=== PATIENT | male | born 1955 | race Caucasian/White ===

== ENCOUNTER → 2017-05-18 | Outpatient (CLI) | payer OTHER ==
[~2017-05-18] MED LIST: ASPI-1471 PO; CHOL10005 PO; KRIL500C2 PO; LOSA25TA50 PO; VITA100C PO
[2017-05-18 10:06] LABS: PLATELET COUNT, AUTOMATED 212 K/uL (150-450)
[2017-05-18 10:14] LABS: LDL CHOLESTEROL 115 mg/dl
== END ==
LOC: LAB 09:48
PROVIDERS: ATTEND Internal Medicine
DX: R03.0 Elevated blood-pressure reading, without diagnosis of hypertension (principal); E78.00 Pure hypercholesterolemia, unspecified; K75.1 Phlebitis of portal vein
CPT/HCPCS: 36415; 82040; 82247; 82310; 82374; 82435; 82465; 82565; 82947; 83718; 84075; 84132; 84155; 84295; 84443; 84450; 84460; 84478; 84520; 85025; 86803

== ENCOUNTER → 2018-04-19 | Outpatient (CLI) | payer OTHER ==
[~2018-04-19] MED LIST changes: -LOSA25TA50 PO; +LOSA25TA57 PO; +ROS10 PO
[2018-04-19 11:49] LABS: PLATELET COUNT, AUTOMATED 232 K/uL (150-450)
[2018-04-19 12:08] LABS: LDL CHOLESTEROL 123 mg/dl
== END ==
LOC: LAB 11:24
PROVIDERS: ATTEND Internal Medicine
DX: K76.0 Fatty (change of) liver, not elsewhere classified (principal); I10 Essential (primary) hypertension; E78.5 Hyperlipidemia, unspecified
CPT/HCPCS: 36415; 81001; 81256; 82040; 82247; 82310; 82374; 82435; 82465; 82565; 82728; 82947; 83540; 83550; 83718; 84075; 84132; 84153; 84155; 84295; 84443; 84450; 84460; 84478; 84520; 85025; 86038

== ENCOUNTER → 2018-08-06 | Outpatient (CLI) | payer OTHER ==
[~2018-08-06] MED LIST changes: -ROS10 PO; +ROSU10TA PO
[2018-08-06 13:28] LABS: PLATELET COUNT, AUTOMATED 247 K/uL (150-450)
[2018-08-06 13:53] LABS: LDL CHOLESTEROL 68 mg/dl
== END ==
LOC: LAB 12:58
PROVIDERS: ATTEND Internal Medicine
DX: R79.89 Other specified abnormal findings of blood chemistry (principal); K76.0 Fatty (change of) liver, not elsewhere classified; E78.5 Hyperlipidemia, unspecified; I10 Essential (primary) hypertension
CPT/HCPCS: 36415; 82040; 82247; 82310; 82374; 82435; 82465; 82565; 82728; 82947; 83540; 83550; 83718; 84075; 84132; 84155; 84295; 84450; 84460; 84478; 84520; 85025